=== PATIENT | female | born 1930 | race Caucasian/White ===

== ENCOUNTER 2018-05-12 22:35 | Inpatient (IN) | payer MEDICARE ==
[2018-05-12] MEDS ORDERED: niCARdipine 20MG In NaCl 20 MG/200 ML BAG ONE (22:45)
[2018-05-12] MEDS ORDERED: Atropine Sulfate 1 mg/10 ml Syringe ONE (22:47)
[2018-05-12 22:58] LABS: Actual Bicarbonate (HCO3a) 15.7 mEq/L (22-28); Analyzer IN Cardio ER; Base Excess (BEa) -6.8 mEq/L (-2.0 to +3.0); Calcium, Ionized 1.11 mmol/L (1.12-1.30); Carboxyhemoglobin (COHb) 0.4 gm% (0.0-3.0); Hemoglobin (Hb) 13.7 g/dL (12.0-16.0); O2 Tension (PaO2) 104.7 mmHg (> 60.0); Potassium - ABG Lab 3.66 mmol/L (3.70-5.30); pH, Arterial 7.42 (7.35-7.45)
[2018-05-12 23:06] LABS: CO2 Tension 24.6 mmHg (35.0-45.0); Puncture Site RRA
[2018-05-12] MEDS ORDERED: Morphine 4 MG/ML VIAL SLOW IVP PRN (23:43)
[2018-05-12] MEDS ORDERED: Ondansetron PF 4 MG/2 ML Vial IVP PRN (23:43)
[2018-05-12] MEDS ORDERED: niCARdipine HCl 25 MG in Sodium Chloride 0.9% 250 ML 240 ML IVPB SCH (23:45)
[2018-05-12] MEDS ORDERED: Aminocaproic Acid 5 GM in Sodium Chloride 0.9% 250 ML 250 ML IV SCH (23:59)
[2018-05-13] MEDS ORDERED: SODIUM CHLORIDE 0.9% IV SCH (01:00)
[2018-05-13] MEDS ORDERED: AMINOCAPROIC ACID IV SCH (01:00)
--- NOTE | 2018-05-13 01:03 | HP ---
ATTENDING PHYSICIAN: Dr. Bry Bran. HISTORY OF PRESENT ILLNESS: The patient is an 88-year-old female with past medical history of diabetes, hypertension, known underlying intracranial aneurysm, who was transferred to [facility] ER for acute subarachnoid hemorrhage. The patient's family reports that this evening around 7:00 p.m., the patient had thunderclap headache followed by sudden syncopal episode.She was brought to the [facility] where CT head was done on arrival, which was notable for diffuse subarachnoid hemorrhage. Unfortunately, shortly after that, the patient's neurologic status began to decline and she required acute intubation. She was transferred to our facility for further management. Pt was initially recieving propofol for sedation but this was discontinued approximately 45 minutes prior to arrival to our ER. The pt has a GCS of 3 on arrival to our ER. She does not open her eyes and has no notable motor function. She is intubated with endotracheal tube, but she is not over breathing the vent. She has no gag reflex. Pupils are approximately 5 mm, equal and nonreactive. She has no withdrawal to noxious stimuli. In discussions with the family, although the patient did not have advance directive documents, they report that they would not wish to have heroic measures done if her overall prognosis was poor. PAST MEDICAL HISTORY: Hypertension, diabetes, and known underlying intracranial aneurysm, which we had been followed over the years with serial imaging. PAST SURGICAL HISTORY: Left hip replacement, spinal surgery. SOCIAL HISTORY: The patient does not smoke, drink, or use any drugs. She lives at home with her family. ALLERGIES: SHE HAS NO KNOWN DRUG ALLERGIES. REVIEW OF SYSTEMS: Unobtainable. PHYSICAL EXAMINATION: VITAL SIGNS: Blood pressure is 129/16. The patient is currently being mechanically ventilated and is 94% on the ventilator. Pulse is 75, temperature is 98.1. CONSTITUTIONAL: The patient is unresponsive. GCS of 3. HEAD: Normocephalic, atraumatic. Eyes, pupils are approximately 5 mm, equal, nonreactive. ENT: Endotracheal tube is in place. No gag reflex is appreciated. RESPIRATORY: The patient has symmetric chest expansion. CARDIOVASCULAR: Regular rate and rhythm. MUSCULOSKELETAL: The patient does have no withdrawal to noxious stimuli. No posturing is appreciated. NEUROLOGIC: She has a GCS of 3. She is unresponsive. ASSESSMENT AND PLAN: This is an unfortunate 88-year-old female with known underlying aneurysm, who appears to have diffuse subarachnoid hemorrhage, likely related to aneurysmal event. Unfortunately, the patient is a Ren and Taylor grade 5 at this time, with an overall very poor prognosis. I discussed candidly with the family and they are leaning toward no aggressive measures. We will admit the patient to the critical care unit and continue supportive care with repeat neurologic exam in the morning. Dr. Bran will also meet with family for family meeting at that time. I have consulted Critical Care, Hospitalist, as well as Palliative Services to assist with medical management of this patient. I have discussed this plan with Dr. Bran, who is in agreement. Job ID: [id number] MTDD
[2018-05-13] MEDS: Sodium Chloride 0.9% 1,000 ML IV SCH ×2 (01:24→06:33)
[2018-05-13 01:43] VITALS: BMI 32.3
[2018-05-13] MEDS: niMODipine 30 MG CAP PO SCH ×3 (02:12→09:22)
[2018-05-13] MEDS: SODIUM CHLORIDE 0.9% IV SCH ×2 (02:34→08:07)
[2018-05-13] MEDS: AMINOCAPROIC ACID IV SCH ×2 (02:34→08:07)
[2018-05-13] MEDS ORDERED: Bisacodyl 10 MG SUPP PR PRN (07:22)
[2018-05-13] MEDS ORDERED: Acetaminophen 325 MG Suppository PR PRN (07:22)
[2018-05-13] MEDS ORDERED: HumaLOG 300 UNITS/3 ML VIAL SC PRN ×2 (07:22)
[2018-05-13] MEDS ORDERED: Acetaminophen 325 MG/10.15 ML UDCUP PER TUBE PRN (07:22)
[2018-05-13] MEDS ORDERED: hydrALAZINE 20 MG/ML VIAL SLOW IVP PRN (07:24)
[2018-05-13] MEDS ORDERED: Diabetic Tussin 200 MG/10 ML UDCUP PER TUBE PRN (07:24)
[2018-05-13] MEDS ORDERED: Senokot S 8.6-50 MG TAB PER TUBE PRN (07:24)
[2018-05-13] MEDS ORDERED: Artificial Tears 18 DROP/0.9 ML EA EYE PRN (07:24)
[2018-05-13] MEDS ORDERED: Loperamide HCl 2 MG CAP PER TUBE PRN (07:24)
[2018-05-13] MEDS ORDERED: Labetalol HCl 100 MG/20 ML VIAL SLOW IVP PRN (07:24)
[2018-05-13] MEDS ORDERED: Eucerin (Mineral Oil/Petrolatum,White) 30 gm Jar TOP PRN (07:24)
[2018-05-13] MEDS ORDERED: Ondansetron ODT 4 MG TAB SL PRN (07:24)
[2018-05-13] MEDS ORDERED: Ventilator Sedation Protocol 1 EACH FS SCH (07:30)
[2018-05-13] MEDS ORDERED: Propofol 1,000 MG/100 ML VIAL IV PRN (07:38)
[2018-05-13] MEDS ORDERED: Lorazepam 2 MG/ML VIAL SLOW IVP PRN ×2 (07:38→16:59)
[2018-05-13] MEDS ORDERED: Propofol BOLUS 1,000 MG/100 ML VIAL IV PRN (07:38)
[2018-05-13] MEDS ORDERED: DISCONTINUE PREVIOUS NARCOTIC PAIN MEDICATIONS AND BENZODIAZEPINES FS SCH (07:38)
[2018-05-13] MEDS ORDERED: fentaNYL Citrate/PF 2,000 MCG in Sodium Chloride 0.9% 60 ML IV SCH (07:38)
[2018-05-13] MEDS ORDERED: Morphine 2 MG/ML SYRINGE SLOW IVP PRN ×2 (07:38→16:59)
[2018-05-13] MEDS ORDERED: Fentanyl BOLUS 250 ML IVPB PRN (07:38)
[2018-05-13 08:00] LABS: Hemoglobin 12.5 g/dL (12.0-16.0); Mean Corpuscular HGB CONC 33.5 g/dL (32.0-36.0); Mean Corpuscular Hemoglobin 30.5 pg (27.0-31.0); Mean Corpuscular Volume 90.9 fL (78.0-98.0); Platelet Count 261 thou/uL (130-400); RBC Distribution Width 11.9 % (11.5-14.5)
[2018-05-13 08:09] VITALS: BP 123/54
[2018-05-13 08:09] LABS: ALT (SGPT) 47 U/L (8-55); AST (SGOT) 40 U/L (5-34); Albumin 3.4 g/dL (3.4-4.8); Alkaline Phosphatase 86 U/L (40-150); Anion Gap 13 mmol/L (10-20); BUN (Urea Nitrogen) 24 mg/dL (9.8-20.1); Bilirubin, Total 0.5 mg/dL (0.2-1.2); Calc. Creatinine Clearance 63 mL/min (70-130); Carbon Dioxide 16 mmol/L (23-31); Chloride 109 mmol/L (98-107); Estimated GFR-MDRD 66; Globulin 2.5 g/dL (2.4-3.5); Glucose 415 mg/dL (83-110); Potassium 3.7 mmol/L (3.5-5.1); Protein, Total 5.9 g/dL (6.0-8.3); Sodium 134 mmol/L (136-145)
[2018-05-13 08:35] LABS: Band 5 % (5-11); Eosinophils 2 % (0-10); Lymphocytes 1 % (21-51); MDiff Complete? YES; Monocytes 3 % (0-10); Neutrophil 89 % (42-75); Platelet Morphology Comment Appears Adequate; White Blood Cell (WBC) Count 20.9 thou/uL (4.8-10.8)
[2018-05-13] MEDS: Pantoprazole 40 MG VIAL IVP SCH ×2 (09:11→09:22)
[2018-05-13 09:53] VITALS: TEMP 97.8
--- NOTE | 2018-05-13 10:27 | CON ---
DATE OF CONSULTATION: 05/13/2018 CONSULTING PHYSICIAN: Bry Bran MD REASON FOR CONSULTATION: Respiratory failure related to aneurysmal bleed. HISTORY OF PRESENT ILLNESS: This is an 88-year-old female with multiple medical problems, who had a thunderclap headache last night around 7 p.m. She was subsequently taken to the [facility], where she was found to have diffuse subarachnoid hemorrhage, which was likely from aneurysmal bleed. She was intubated for respiratory support and is intubated this morning as I am seeing her. She has numerous family members at the bedside who were present during my exam. PAST MEDICAL HISTORY: 1. Diabetes mellitus. 2. Recent hospitalization for pneumonia. 3. Known underlying intracranial aneurysm. 4. Hypertension. PAST SURGICAL HISTORY: 1. Left hip replacement. 2. Spinal surgery. SOCIAL HISTORY: Nonsmoker. Does not consume alcohol. ALLERGIES: NONE. REVIEW OF SYSTEMS: Unobtainable. PHYSICAL EXAMINATION: VITAL SIGNS: Heart rate is in the 40s to 60s, she is having significant periods of sinus pauses, blood pressure 127/52, O2 saturation 100%. NEUROLOGIC: Pupils are nonreactive to light. She does have a weak gag reflex. She does not withdraw to pain. She does have spontaneous respirations. HEENT: Otherwise, unremarkable. NECK: No JVD. CHEST: Clear. CARDIAC: S1 and S2, irregular, with significant periods of sinus pauses. ABDOMEN: Soft. EXTREMITIES: No edema. LABORATORY DATA: Sodium 134, potassium 3.7, chloride 109, CO2 of 16, BUN 24, creatinine 0.8, and glucose 415. PH 7.42, pCO2 of 24, pO2 of 104. White blood cell count 20, hematocrit 37.3, and platelet count 261. ASSESSMENT: 1. Aneurysmal bleed. 2. Comatose state. 3. Acute respiratory failure related aneurysmal bleed. PLAN: I spoke with the family. The patient had standing do not attempt resuscitation order. Based on her poor prognosis and unlikelihood of improvement, the family has elected to withdraw care. No further Pulmonary/Critical Care recommendations at this time. TOTAL TIME SPENT: 45 minutes. Job ID: [id number]
--- NOTE | 2018-05-13 11:51 | PDOC.PN ---
- Subjective Encounter Start Date: 05/13/18 Encounter Start Time: 09:00 -: old records requested/rev pt was terminally extubated, family decided about DNR and comfort care only - Objective Resuscitation Status - Order Detail: 05/13/18 04:21 Resuscitation Status Routine Resuscitation Status: DNAR: NO Resuscitation Discussed with: BEKAH WYATT Additional comments: PHONE CONSENT TO MAKE PT DNAR ON CHART. MAR Reviewed: Yes Vital Signs & Weight: Vital Signs (12 hours) Temp Pulse Resp BP Pulse Ox 05/13/18 08:07 63 123/54 L 05/13/18 08:00 97.8 F 14 100 05/13/18 06:00 14 05/13/18 04:00 96.8 F L 16 05/13/18 02:42 47 L 05/13/18 02:00 96.4 F L 14 100 05/13/18 01:14 47 L 121/51 L Weight Weight 182 lb 5.156 oz Most Recent Monitor Data Heart Rate from ECG 62 NIBP 127/52 NIBP BP-Mean 77 Respiration from ECG 16 SpO2 100 I&O: 05/12/18 05/13/18 05/14/18 06:59 06:59 06:59 Intake Total 1339 0 Output Total 392 195 Balance 947 -195 Result Diagrams: 05/13/18 07:39 05/13/18 07:39 Radiology Reviewed by me: Yes EKG Reviewed by me: Yes (nsr) Phys Exam - Physical Examination Constitutional: NAD HEENT: sclera anicteric Neck: no JVD, supple Respiratory: no wheezing, no rales, no rhonchi Cardiovascular: RRR, no significant murmur, no rub Gastrointestinal: soft, non-tender, no distention, positive bowel sounds Musculoskeletal: no edema, pulses present unresponsive Lymphatic: no nodes Deviation from normal: unresponsive Dx/Plan (1) Acute respiratory failure with hypoxia Code(s): J96.01 - ACUTE RESPIRATORY FAILURE WITH HYPOXIA Status: Acute Comment: terminally extubated for comfort care (2) Encephalopathy acute Code(s): G93.40 - ENCEPHALOPATHY, UNSPECIFIED Status: Acute Comment: due to SAH (3) Subarachnoid hemorrhage Code(s): I60.9 - NONTRAUMATIC SUBARACHNOID HEMORRHAGE, UNSPECIFIED Status: Acute Comment: due to aneursmal bleed (4) Diabetes type 2, controlled Code(s): E11.9 - TYPE 2 DIABETES MELLITUS WITHOUT COMPLICATIONS Status: Chronic (5) Hypertension Code(s): I10 - ESSENTIAL (PRIMARY) HYPERTENSION Status: Chronic (6) Obesity (BMI 30.0-34.9) Code(s): E66.9 - OBESITY, UNSPECIFIED Status: Chronic - Plan cont current plan of care * pt is now on comfort care * she may soon * medication reviewed as below * symptomatic treatment * prognosis is very poor * if she lingers longer than consider hospice evaluation for hospice care inpt * supportive care * continue current comfort care Review of Systems - Review of Systems Other: unable to review due to comatose status - Medications/Allergies Allergies/Adverse Reactions: Allergies Allergy/AdvReac Type Severity Reaction Status Date / Time No Known Allergies Allergy Unverified 05/12/18 23:50 Medications: Current Medications Acetaminophen (Tylenol) 650 mg AR Q6H PRN PRN Reason: Fever > 101 or Mild Pain Acetaminophen (Tylenol Elixir) 650 mg PER TUBE Q6H PRN PRN Reason: Fever > 101 or Mild Pain Albuterol/Ipratropium (Duoneb) 3 ml NEB [id number] PRN PRN Reason: SOB &/or Wheezing Artificial Tears (Tears Naturale) 2 drop EA EYE PRN PRN PRN Reason: Dry Eyes Bisacodyl (Dulcolax) 10 mg AR DAILYPRN PRN PRN Reason: Constipation Guaifenesin (Robitussin Sf) 200 mg PER TUBE Q4H PRN PRN Reason: Cough Hydralazine HCl (Apresoline) 10 mg SLOW IVP Q4H PRN PRN Reason: SBP > 180 and HR < 70 Nicardipine HCl 25 mg/ Sodium (Chloride) 250 mls @ 0 mls/hr IVPB INF [facility]; Protocol Sodium Chloride (Normal Saline 0.9%) 1,000 mls @ 75 mls/hr IV .[id number] [facility] Last Admin: 05/13/18 06:33 Dose: 1,000 mls Aminocaproic Acid 5 gm/ Sodium (Chloride) 250 mls @ 50 mls/hr IV INF [facility] Last Admin: 05/13/18 08:07 Dose: 250 mls Fentanyl Citrate 2,000 mcg/ (Sodium Chloride) 100 mls @ 0 mls/hr IV INF [facility]; Protocol Stop: 06/12/18 07:38 Fentanyl Citrate (Fentanyl Bolus) 250 mls @ 0 mls/hr IVPB PRN PRN PRN Reason: Breakthrough pain/agitation Stop: 06/12/18 07:38 Insulin Human Lispro (Humalog) 0 units SC .MODERATE SLIDING SC PRN PRN Reason: Moderate Correctional Scale Insulin Human Lispro (Humalog) 0 units SC .BEDTIME SLIDING SC PRN PRN Reason: Bedtime Correctional Scale Labetalol HCl (Normodyne) 20 mg SLOW IVP Q4H PRN PRN Reason: SBP > 180 and HR >/= 70 Loperamide HCl (Imodium) 2 mg PER TUBE PRN PRN PRN Reason: Diarrhea/Loose Stools Lorazepam (Ativan) 2 mg SLOW IVP Q1H PRN PRN Reason: Breakthrough agitation Stop: 06/12/18 07:38 Mineral Oil/White Petrolatum (Eucerin Cream) 0 gm TOP BIDPRN PRN PRN Reason: Dry Skin Miscellaneous Medication (Ventilator Sedation Protocol) 1 each FS ASDIR [facility] Morphine Sulfate (Morphine) 2 mg SLOW IVP Q1H PRN PRN Reason: Moderate Pain (4-6) Morphine Sulfate (Morphine) 2 mg SLOW IVP Q1H PRN PRN Reason: BREAKTHROUGH PAIN/Agitation Stop: 06/12/18 07:38 Nimodipine (Nimodipine) 60 mg PO Q4HR [facility] Last Admin: 05/13/18 09:22 Dose: 60 mg Discontinue Previous Narcotic Pain Medications And Benzodiazepines 1 each FS .ONE [facility] Stop: 06/12/18 07:38 Ondansetron HCl (Zofran) 4 mg IVP Q6H PRN PRN Reason: Nausea/Vomiting Ondansetron HCl (Zofran Odt) 4 mg SL Q6H PRN PRN Reason: Nausea/Vomiting Pantoprazole Sodium (Protonix) 40 mg IVP DAILY [facility] Last Admin: 05/13/18 09:22 Dose: 40 mg Propofol (Diprivan) 1,000 mg IV INF PRN; Protocol PRN Reason: TO ACHIEVE GOAL RASS Stop: 06/12/18 07:38 Propofol (Diprivan Bolus) 20 mg IV Q5MIN PRN PRN Reason: BREAKTHROUGH AGITATION Stop: 06/12/18 07:38 Senna/Docusate Sodium (Senokot S) 2 tab PER TUBE BID PRN PRN Reason: Constipation Sodium Chloride (Flush - Normal Saline) 10 ml IVF Q12HR [facility] Last Admin: 05/13/18 09:23 Dose: 10 ml Sodium Chloride (Flush - Normal Saline) 10 ml IVF PRN PRN PRN Reason: Saline Flush
--- NOTE | 2018-05-13 16:00 | PRG ---
DATE OF SERVICE: 05/13/2018 SUBJECTIVE: The patient is seen and examined. I agree with Karly Angus's evaluation on 05/12/2018. The patient is an 88-year-old woman who, according to the family, had a known intracranial aneurysm. This was being followed over the past week. She has had issues with headache and then issue with chest pain. She became suddenly unresponsive yesterday ultimately requiring intubation and transfer to this facility. Currently, she is not sedated. Her pupils are 3 mm and nonreactive. She has no corneals and no gag. She has a very trace withdrawal of both upper extremities and is overbreathing the ventilator. DIAGNOSTIC STUDIES: Her CT scan shows massive subarachnoid hemorrhage with intraventricular extension. IMPRESSION AND PLAN: The patient has had a devastating subarachnoid hemorrhage. At her age and her current level of neurologic damage, there is no likelihood of meaningful neurologic recovery. I discussed this candidly with her family and they have previously discussed the situation with the patient. She would not wish any aggressive care under the circumstances. They wished to be DNR/DNI and wished aggressive support to be withdrawn. They understand that she will pass. I support this decision and will move forward with these orders once the family has had time for final visit. Job ID: [id number]
[2018-05-13] MEDS ORDERED: Scopolamine 1.5 mg/72 hour Patch TOP PRN (16:58)
--- NOTE | 2018-05-25 18:47 | EKG ---
Test Reason : Blood Pressure : / mmHG Vent. Rate : 046 BPM Atrial Rate : 046 BPM P-R Int : 178 ms QRS Dur : 100 ms QT Int : 612 ms P-R-T Axes : 061 002 -12 degrees QTc Int : 535 ms Marked sinus bradycardia Inferior infarct , age undetermined Prolonged QT Abnormal ECG Confirmed by KEILY DUNN DO ([id number]), editor greeting card LAURIE MONTELONGO ([id number]) on 05/25/2018 6:46:44 PM Referred By: Confirmed By:KEILY DUNN DO
== END 2018-05-13 17:28 | disposition expired | DRG 64 ==
LOC: ERS 22:35 → CCU 23:32 → ONC 05-13 16:27
PROVIDERS: ADMIT Neurological Surgery; ATTEND Neurological Surgery
PROC: 5A1935Z Respiratory Ventilation, Less than 24 Consecutive Hours (ICD-10-PCS; principal; 2018-05-12)
PROC: 0BH17EZ Insertion of Endotracheal Airway into Trachea, Via Natural or Artificial Opening (ICD-10-PCS; 2018-05-12)
DX: I60.9 Nontraumatic subarachnoid hemorrhage, unspecified (principal); J96.01 Acute respiratory failure with hypoxia; G93.49 Other encephalopathy; R40.2432 Glasgow coma scale score 3-8, at arrival to emergency department; R29.736 NIHSS score 36; I10 Essential (primary) hypertension; E11.9 Type 2 diabetes mellitus without complications; Z66 Do not resuscitate; Z51.5 Encounter for palliative care; E66.9 Obesity, unspecified; Z87.01 Personal history of pneumonia (recurrent); Z68.32 Body mass index [BMI] 32.0-32.9, adult
CPT/HCPCS: 36415; 80053; 82805; 84443; 85007; 85027; 93005; 94002; 94003; 96365; 96366; 96375; C9113; J0461; J7050; S0017